=== PATIENT | male | born 1970 ===

== ENCOUNTER 2019-04-07 00:49 | Emergency (ER) | payer OTHER ==
--- NOTE | 2019-04-07 01:13 | Emergency Department Report ---
ED General Adult HPI - General Chief complaint: Abdominal Pain Stated complaint: CHEST PAIN Time Seen by Provider: 04/07/19 01:11 Source: patient, EMS Mode of arrival: Stretcher Limitations: Language Barrier - History of Present Illness Initial comments: 48 y.o. male with no PMHx presents with complaint of neck pain that began at 10 PM. Patient states that the neck pain then went to his chest and into his left hand. Patient states he's having full body pain as well. Patient denies any abdominal pain. Patient denies any fever or vomiting. Patient states currently his chest is not hurting. Patient denies any history of PE or DVT. Patient denies any difficulty breathing. Patient denies any headache or focal weakness. Patient was given aspirin therapy while at the senior living prior to arrival in the ER. . History obtained via restaurant lead. - Related Data Home Medications Medication Instructions Recorded Confirmed Last Taken No Known Home Medications [No 04/07/19 04/07/19 Unknown Reported Home Medications] Allergies Allergy/AdvReac Type Severity Reaction Status Date / Time No Known Allergies Allergy Unverified 04/07/19 01:16 ED Review of Systems ROS: Stated complaint: CHEST PAIN Other details as noted in HPI Constitutional: denies: chills, fever Eyes: denies: eye pain, eye discharge, vision change ENT: denies: ear pain, throat pain Respiratory: denies: cough, shortness of breath, wheezing Cardiovascular: chest pain Endocrine: no symptoms reported Gastrointestinal: abdominal pain Genitourinary: denies: urgency, dysuria Musculoskeletal: denies: back pain, joint swelling, arthralgia Skin: denies: rash, lesions Neurological: denies: headache, weakness, paresthesias Psychiatric: denies: anxiety, depression Hematological/Lymphatic: denies: easy bleeding, easy bruising ED Past Medical Hx - Past Medical History Previous Medical History?: No - Surgical History Past Surgical History?: No - Medications Home Medications: Home Medications Medication Instructions Recorded Confirmed Last Taken Type No Known Home Medications [No 04/07/19 04/07/19 Unknown History Reported Home Medications] ED Physical Exam - General Limitations: Language Barrier General appearance: alert, in no apparent distress - Head Head exam: Present: atraumatic, normocephalic - Eye Eye exam: Present: normal appearance - ENT ENT exam: Present: mucous membranes moist - Neck Neck exam: Present: normal inspection - Respiratory Respiratory exam: Present: normal lung sounds bilaterally. Absent: respiratory distress - Cardiovascular Cardiovascular Exam: Present: regular rate, normal rhythm. Absent: systolic murmur, diastolic murmur, rubs, gallop - GI/Abdominal GI/Abdominal exam: Present: soft, normal bowel sounds - Rectal Rectal exam: Present: deferred - Extremities Exam Extremities exam: Present: normal inspection - Back Exam Back exam: Present: normal inspection - Neurological Exam Neurological exam: Present: alert, oriented X3 - Psychiatric Psychiatric exam: Present: normal affect, normal mood - Skin Skin exam: Present: warm, dry, intact, normal color. Absent: rash ED Course Vital Signs 04/07/19 04/07/19 04/07/19 01:06 01:11 01:30 Temperature 98.1 F Pulse Rate 77 76 76 Respiratory 28 H 18 28 H Rate Blood Pressure 133/87 130/91 O2 Sat by Pulse 95 98 94 Oximetry 04/07/19 04/07/19 04/07/19 02:00 02:06 02:30 Temperature Pulse Rate 74 77 Respiratory 24 18 20 Rate Blood Pressure 132/85 105/61 O2 Sat by Pulse 93 91 Oximetry 04/07/19 04/07/19 04/07/19 03:00 03:30 04:00 Temperature Pulse Rate 75 93 H 83 Respiratory 26 H 16 35 H Rate Blood Pressure 121/76 131/81 140/89 O2 Sat by Pulse 94 94 93 Oximetry 04/07/19 04:30 Temperature Pulse Rate 85 Respiratory 34 H Rate Blood Pressure 129/86 O2 Sat by Pulse 94 Oximetry ED Medical Decision Making - Lab Data Result diagrams: 04/07/19 01:40 04/07/19 01:40 - EKG Data EKG shows normal: sinus rhythm Rate: normal - EKG Data Interpretation: no acute changes - Medical Decision Making Patient has initial troponin which was negative. Patient has negative CXR as well. Patient had repeat troponin which is normal as well. Patient has normal D DImer and will be discharged to follow up with Cardiology as an outpatient. - Differential Diagnosis STEMI; NSTEMI; Dehydration; Electrolyte Abnormality; ANemia; Pneumonia Critical care attestation.: If time is entered above; I have spent that time in minutes in the direct care of this critically ill patient, excluding procedure time. ED Disposition Clinical Impression: Chest pain Disposition: DC-01 TO HOME OR SELFCARE Is pt being admited?: No Does the pt Need Aspirin: No Condition: Stable Instructions: Chest Pain (ED) Time of Disposition: 05:27 Print Language: URDU
[2019-04-07] MEDS ORDERED: CYCLOBENZAPRINE 10 MG TAB PO ONE (01:29)
--- NOTE | 2019-04-07 01:53 | XRay Report ---
CHEST 1 VIEW INDICATION / CLINICAL INFORMATION: chest pain. COMPARISON: None available. FINDINGS: SUPPORT DEVICES: None. HEART / MEDIASTINUM: No significant abnormality. LUNGS / PLEURA: Low lung volumes. Given this limitation, no acute pulmonary or pleural disease. No pn eumothorax. ADDITIONAL FINDINGS: No significant additional findings. IMPRESSION: 1. Low lung volumes. No gross acute pulmonary/pleural disease. Signer Name: Mendy Lynn MD Signed: 04/07/2019 1:48 AM Workstation Name: [id number]
[2019-04-07 02:16] LABS: Hematocrit 44.9 % (35.5-45.6); Hemoglobin 14.9 gm/dl (11.8-15.2); Mean Corpuscular HGB Conc 33 % (32-34); Mean Corpuscular Volume 89 fl (84-94); Platelet Count 292 K/mm3 (140-440); Red Blood Count 5.02 M/mm3 (3.65-5.03); Red Cell Distribution Width 14.1 % (13.2-15.2)
[2019-04-07 02:33] LABS: Alanine Aminotransferase 52 units/L (7-56); Albumin 4.5 g/dL (3.9-5); BUN/Creatinine Ratio 17; Blood Urea Nitrogen 10 mg/dL (9-20); Calcium 9.3 mg/dL (8.4-10.2); Hemolysis Index 5
[2019-04-07 05:46] VITALS: BP 114/82
== END 2019-04-07 06:17 | disposition home or self-care (01) ==
LOC: EDBD 00:49 → ED 00:49
DX: R07.9 Chest pain, unspecified (principal); M54.2 Cervicalgia
CPT/HCPCS: 36415; 71045; 80053; 82550; 84484; 85027; 85379; 93005; 93010